=== PATIENT | male | born 1955 | race Caucasian/White ===

== ENCOUNTER → 2017-04-28 | Outpatient (CLI) | payer OTHER ==
[2017-04-28 17:47] LABS: BASO % 0.2 %; BASO ABS # 0.02 K/uL (0-0.2); EOS % 2.8 %; EOS ABS # 0.31 K/uL (0-0.5); HEMATOCRIT 37.2 % (42-52); HEMOGLOBIN 12.6 g/dL (14.0-18.0); IG# 0.04 K/uL (0.00-0.02); LYMPH % 23.8 %; LYMPH ABS # 2.61 K/uL (1.2-3.4); MEAN CELL VOLUME 93.2 fL (80-100); MEAN CORPUSCULAR HEMOGLOBIN 31.6 pg (25-34); MEAN CORPUSCULAR HGB CONC 33.9 g/dl (32-36); MEAN PLATELET VOLUME 8.8 fL (7.4-10.4); MONO % 6.8 %; MONO ABS # 0.74 K/uL (0.11-0.59); NEUT ABS # 7.23 K/uL (1.4-6.5); PLATELET COUNT 274 K/uL (130-400); RED CELL DISTRIBUTION WIDTH CV 13.8 % (11.5-14.5); WHITE BLOOD COUNT 10.95 K/uL (4.8-10.8)
[2017-04-28 18:28] LABS: ALBUMIN 3.9 gm/dl (3.4-5.0); ALT/SGPT 20 U/L (12-78); AST/SGOT 17 U/L (15-37); BLOOD UREA NITROGEN 17 mg/dl (7-18); CARBON DIOXIDE 27 mmol/L (21-32); GLUCOSE 72 mg/dl (70-99); POTASSIUM 5.3 mmol/L (3.5-5.1); SODIUM 135 mmol/L (136-145)
[2017-04-28 18:30] LABS: HEMOGLOBIN A1C 6.5 % (4.5-5.6); TRANSFERRIN 221 mg/dl (200-360)
[2017-04-28 18:35] LABS: ALKALINE PHOSPHATASE 81 U/L (45-117); CHOLESTEROL 141 mg/dl (0-200); LDL CHOLESTEROL CALCULATED 75 mg/dl; TOTAL PROTEIN 7.4 gm/dl (6.4-8.2)
== END | disposition home or self-care (01) ==
LOC: C.LABMFLN 15:40
PROVIDERS: ATTEND Family Medicine
DX: E78.5 Hyperlipidemia, unspecified (principal); D64.9 Anemia, unspecified; E11.9 Type 2 diabetes mellitus without complications

== ENCOUNTER → 2017-05-19 | Outpatient (CLI) | payer OTHER | END | disposition home or self-care (01) | LOC: C.LABMFLN 07:07 | PROVIDERS: ATTEND Family Medicine | DX: E87.5 Hyperkalemia (principal) ==

== ENCOUNTER → 2017-05-23 | Outpatient (CLI) | payer OTHER ==
[2017-05-23 13:08] LABS: BLOOD UREA NITROGEN 17 mg/dl (7-18); CARBON DIOXIDE 25 mmol/L (21-32); CREATININE 1.09 mg/dl (0.60-1.40); GLUCOSE 155 mg/dl (70-99); POTASSIUM 5.2 mmol/L (3.5-5.1); SODIUM 136 mmol/L (136-145)
== END | disposition home or self-care (01) ==
LOC: C.LABMFLN 07:02
PROVIDERS: ATTEND Family Medicine
DX: E87.5 Hyperkalemia (principal)

== ENCOUNTER → 2017-05-30 | Outpatient (CLI) | payer OTHER | END | disposition home or self-care (01) | LOC: C.LABMFLN 06:59 | PROVIDERS: ATTEND Family Medicine | DX: E87.5 Hyperkalemia (principal) ==

== ENCOUNTER → 2017-07-28 | Outpatient (CLI) | payer OTHER ==
[2017-07-28 12:26] LABS: BASO % 0.2 %; BASO ABS # 0.02 K/uL (0-0.2); EOS % 2.8 %; EOS ABS # 0.24 K/uL (0-0.5); HEMATOCRIT 37.2 % (42-52); HEMOGLOBIN 12.4 g/dL (14.0-18.0); IG# 0.02 K/uL (0.00-0.02); LYMPH % 30.7 %; LYMPH ABS # 2.64 K/uL (1.2-3.4); MEAN CELL VOLUME 94.4 fL (80-100); MEAN CORPUSCULAR HEMOGLOBIN 31.5 pg (25-34); MEAN CORPUSCULAR HGB CONC 33.3 g/dl (32-36); MEAN PLATELET VOLUME 9.2 fL (7.4-10.4); MONO % 7.2 %; MONO ABS # 0.62 K/uL (0.11-0.59); NEUT % 58.9 %; NEUT ABS # 5.07 K/uL (1.4-6.5); PLATELET COUNT 256 K/uL (130-400); RED CELL DISTRIBUTION WIDTH CV 13.9 % (11.5-14.5); RED CELL DISTRIBUTION WIDTH SD 47.9 fL (36.4-46.3); WHITE BLOOD COUNT 8.61 K/uL (4.8-10.8)
[2017-07-28 13:10] LABS: HEMOGLOBIN A1C 6.2 % (4.5-5.6)
[2017-07-28 13:23] LABS: AST/SGOT 18 U/L (15-37); BLOOD UREA NITROGEN 16 mg/dl (7-18); CARBON DIOXIDE 27 mmol/L (21-32); CHOLESTEROL 113 mg/dl (0-200); CREATININE 1.01 mg/dl (0.60-1.40); GLUCOSE 137 mg/dl (70-99); POTASSIUM 4.2 mmol/L (3.5-5.1); SODIUM 137 mmol/L (136-145)
[2017-07-28 13:29] LABS: ALKALINE PHOSPHATASE 75 U/L (45-117); ALT/SGPT 16 U/L (12-78); LDL CHOLESTEROL CALCULATED 58 mg/dl; TOTAL PROTEIN 7.6 gm/dl (6.4-8.2); TRANSFERRIN 230 mg/dl (200-360)
== END | disposition home or self-care (01) ==
LOC: C.LABMFLN 08:59
PROVIDERS: ATTEND Family Medicine
DX: D64.9 Anemia, unspecified (principal); E78.5 Hyperlipidemia, unspecified; E11.9 Type 2 diabetes mellitus without complications

== ENCOUNTER → 2017-11-09 | Outpatient (CLI) | payer OTHER ==
[~2017-11-09] MED LIST: ALFU10TA2 PO; AMB5 PO; ASPI81TA28 PO; CILO100T PO; FAMO40TA6 PO; FLUT0.15 NAE; GLC/500 PO; GLIM4TAB2 PO; HYDR-5806 PO; METO25TA56 PO; NTRGSL/4 UT; PRAV20TA PO; PRED50TA PO; VNTHFA/IN INH
[2017-11-09 12:52] LABS: BASO % 0.1 %; BASO ABS # 0.01 K/uL (0-0.2); EOS % 2.9 %; EOS ABS # 0.23 K/uL (0-0.5); HEMATOCRIT 38.2 % (42-52); HEMOGLOBIN 12.9 g/dL (14.0-18.0); IG# 0.04 K/uL (0.00-0.02); LYMPH % 25.3 %; LYMPH ABS # 1.98 K/uL (1.2-3.4); MEAN CELL VOLUME 94.8 fL (80-100); MEAN CORPUSCULAR HGB CONC 33.8 g/dl (32-36); MEAN PLATELET VOLUME 9.1 fL (7.4-10.4); MONO ABS # 0.55 K/uL (0.11-0.59); NEUT % 64.2 %; NEUT ABS # 5.03 K/uL (1.4-6.5); PLATELET COUNT 263 K/uL (130-400); RED CELL DISTRIBUTION WIDTH CV 14.4 % (11.5-14.5); RED CELL DISTRIBUTION WIDTH SD 49.7 fL (36.4-46.3); WHITE BLOOD COUNT 7.84 K/uL (4.8-10.8)
[2017-11-09 12:55] LABS: HEMOGLOBIN A1C 6.5 % (4.5-5.6)
[2017-11-09 13:33] LABS: ALBUMIN 3.8 gm/dl (3.4-5.0); ALKALINE PHOSPHATASE 80 U/L (45-117); ALT/SGPT 17 U/L (12-78); AST/SGOT 15 U/L (15-37); BLOOD UREA NITROGEN 14 mg/dl (7-18); CARBON DIOXIDE 24 mmol/L (21-32); CHOLESTEROL 122 mg/dl (0-200); CREATININE 0.96 mg/dl (0.60-1.40); GLUCOSE 117 mg/dl (70-99); LDL CHOLESTEROL CALCULATED 63 mg/dl; SODIUM 137 mmol/L (136-145); TOTAL PROTEIN 7.4 gm/dl (6.4-8.2); TRANSFERRIN 224 mg/dl (200-360)
== END | disposition home or self-care (01) ==
LOC: C.LABMFLN 08:36
PROVIDERS: ATTEND Family Medicine
DX: E11.9 Type 2 diabetes mellitus without complications (principal); E78.5 Hyperlipidemia, unspecified; D64.9 Anemia, unspecified

== ENCOUNTER 2020-04-29 08:05 | Inpatient (IN) ==
--- NOTE | 2020-04-21 15:01 | PAT Medication Instructions ---
Medication Instructions Date of Service April 21, 2020 Home Medications Medication Instructions Recorded nitroglycerin 0.4 mg sublingual 0.4 mg SL Q5M PRN #20 tab 10/05/18 tablet metoprolol tartrate 50 mg tablet 50 mg PO BID #180 tab 07/27/19 albuterol sulfate 90 mcg/actuation 2 puffs INHALATION Q4H PRN #18 gm 10/25/19 aerosol inhaler cilostazol 50 mg tablet 50 mg PO BID #180 tab 12/12/19 metformin 500 mg tablet 500 mg PO BID #180 tab 12/31/19 hydrocodone 10 mg-acetaminophen 1 tab PO Q6H PRN #120 tab 03/27/20 325 mg tablet ezetimibe 10 mg tablet 10 mg PO DAILY #30 tab 04/12/20 nitroglycerin 0.4 mg sublingual tablet 0.4 mg SL Q5M PRN metoprolol tartrate 50 mg tablet 50 mg PO BID albuterol sulfate 90 mcg/actuation aerosol inhaler 2 puffs INHALATION Q4H PRN cilostazol 50 mg tablet 50 mg PO BID metformin 500 mg tablet 500 mg PO BID ascorbic acid (vitamin C) 1,000 mg tablet 1 g PO QAM cholecalciferol (vitamin D3) 25 mcg (1,000 unit) capsule 25 mcg PO QAM glimepiride 2 mg tablet See Rx Instructions PO BID hydrocodone 10 mg-acetaminophen 325 mg tablet 1 tab PO Q6H PRN alfuzosin 10 mg PO QPM aspirin 81 mg PO QPM famotidine 40 mg PO QAM fluticasone propionate 2 sprays INTRANASAL DAILY PRN lisinopril 2.5 mg PO QAM pravastatin 80 mg PO QPM ezetimibe 10 mg tablet 10 mg PO DAILY Continue as directed nitroglycerin 0.4 mg sublingual tablet 0.4 mg SL Q5M PRN (if needed) ASK your surgeon for instructions cilostazol 50 mg tablet 50 mg PO BID aspirin 81 mg PO QPM DO NOT take the morning of surgery metformin 500 mg tablet 500 mg PO BID ascorbic acid (vitamin C) 1,000 mg tablet 1 g PO QAM cholecalciferol (vitamin D3) 25 mcg (1,000 unit) capsule 25 mcg PO QAM glimepiride 2 mg tablet See Rx Instructions PO BID lisinopril 2.5 mg PO QAM Take morning of surgery With a small sip of water, OTHERWISE NOTHING TO EAT OR DRINK AFTER MIDNIGHT: metoprolol tartrate 50 mg tablet 50 mg PO BID albuterol sulfate 90 mcg/actuation aerosol inhaler 2 puffs INHALATION Q4H PRN (use if needed; please bring rescue inhaler with you to hospital day of surgery if possible) hydrocodone 10 mg-acetaminophen 325 mg tablet 1 tab PO Q6H PRN (okay to take up to 4 hours prior to surgery if needed) famotidine 40 mg PO QAM fluticasone propionate 2 sprays INTRANASAL DAILY PRN (if needed) ezetimibe 10 mg tablet 10 mg PO DAILY Take evening before surgery metoprolol tartrate 50 mg tablet 50 mg PO BID albuterol sulfate 90 mcg/actuation aerosol inhaler 2 puffs INHALATION Q4H PRN (if needed) metformin 500 mg tablet 500 mg PO BID glimepiride 2 mg tablet See Rx Instructions PO BID hydrocodone 10 mg-acetaminophen 325 mg tablet 1 tab PO Q6H PRN (if needed) alfuzosin 10 mg PO QPM fluticasone propionate 2 sprays INTRANASAL DAILY PRN (if needed) pravastatin 80 mg PO QPM Other Notes If you have any questions please call us at [phone] or [phone] or [phone] or [phone]
--- NOTE | 2020-04-23 10:19 | Anesthesiology Consultation ---
Date of Service April 23, 2020 Assessment & Plan (1) Encounter for pre-operative examination: Chart Review Chart Review: Acceptable Risk for Surgery (pending preop Covid testing results ) and Patient seen in Pre Admission Testing - Check BSG AM DOS Pt states he had awareness with angioplasty and stenting of left iliac artery on 10/14/17- pt states it was painful and uncomfortable but he could not speak or move. (Procedure was done in Room 12 with RN sedation only per records) Per [facility] appt on 04/23/20, patient resides in [facility]. Wears mask, uses good hand hygiene and socially distances. No recent travel. No known Covid positive contacts or Covid related symptoms. Pt had preop Covid testing 04/22/20 at [place]= will await results. Educated on importance of self quarantining, social distancing and wearing mask in public both for the patient and household contacts. Seen by cardio 03/18/21= pt with hx of BMS in 1997. No angina but claudication has been limiting his exertion. Continue aspirin 81 mg daily indefinitely. Co ntinue beta-elizabeth. HTN- well controlled. Dyslipidemia- intolerant to other statins but tolerates Pravastatin. PAD s/p femoral-femoral bypass, since occluded. Worsening right LE claudication- has bypass scheduled Apr [address] Chan. Preoperative cardiac assessment: Difficult to know his functional status as claudication appears to be his most limiting factor. Dobutamine stress echo ordered as per patient request to be done in the office. He should remain on aspirin and beta-elizabeth throughout the perioperative period. This was discussed with him. (Pt had abnormal DSE on 04/02/20- subsequently had cardiac cath on 04/10/20- "Mild nonobstructive CAD. False positive stress echo.") Teaching & Discussion Pre-Anesthesia Teaching/Discussion Notes: Instructed NPO after midnight before s urgery,except medications with 15 cc of water. Medication instructions provided according to the PAT guidelines. History Surgery Operation Date: 04/29/20 07:30 Proposed Procedures p Right Ilio Femoral Bypass - Agapito Chan MD Height/Weight Height: 5 ft 7 in Weight: 75.6 kg Allergies Allergy/AdvReac Type Severity Reaction Status Date / Time gabapentin Allergy Unknown "throat Verified 04/02/20 13:31 swelled shhut" Iodinated Contrast Media Allergy Unknown hives Verified 04/02/20 13:31 Medications Home Medications Medication Instructions Recorded Confirmed Last Taken nitroglycerin 0.4 mg sublingual 0.4 mg SL Q5M PRN #20 tab 10/05/18 04/10/20 Unknown tablet metoprolol tartrate 50 mg tablet 50 mg PO BID #180 tab 07/27/19 04/10/20 Unknown albuterol sulfate 90 mcg/actuation 2 puffs INHALATION Q4H PRN #18 gm 10/25/19 04/10/20 Unknown aerosol inhaler cilostazol 50 mg tablet 50 mg PO BID #180 tab 12/12/19 04/10/20 Unknown metformin 500 mg tablet 500 mg PO BID #180 tab 12/31/19 04/10/20 Unknown ascorbic acid (vitamin C) 1,000 mg 1 g PO QAM tab 03/18/20 04/10/20 Unknown tablet cholecalciferol (vitamin D3) 25 25 mcg PO QAM 03/18/20 04/10/20 Unknown mcg (1,000 unit) capsule glimepiride 2 mg tablet See Rx Instructions PO BID tab 03/18/20 04/10/20 Unknown hydrocodone 10 mg-acetaminophen 1 tab PO Q6H PRN #120 tab 03/27/20 04/10/20 Unknown 325 mg tablet alfuzosin 10 mg PO QPM 04/02/20 04/10/20 Unknown aspirin 81 mg PO QPM 04/02/20 04/10/20 Unknown famotidine 40 mg PO QAM 04/02/20 04/10/20 Unknown fluticasone propionate 2 sprays INTRANASAL DAILY PRN 04/02/20 04/10/20 Unknown lisinopril 2.5 mg PO QAM 04/02/20 04/10/20 Unknown pravastatin 80 mg PO QPM 04/02/20 04/10/20 Unknown ezetimibe 10 mg tablet 10 mg PO DAILY #30 tab 04/12/20 Unknown Past Medical History Medical History (Updated 04/23/20 @ 14:43 by Mayra Duran PA-C) Acid reflux Well controlled and stable Anxiety Asthma Well controlled and stable- rare albuterol use Atherosclerosis of leg with intermittent claudication CAD (coronary artery disease) BMS x1 (1997), mild non-obstructive CAD per 04/10/20 cardiac cath Chronic lumbar pain Dyslipidemia Enlarged prostate Hearing difficulty No hearing aids needed History of blood clots Pt has no recollection of DVT/PEs or history of being on anticoagulation HTN (hypertension) Myocardial Infarction 1997 LEYDA on CPAP PAD (peripheral artery disease) s/p multiple vascular interventions- R/L common femoral endart (2012), left iliac artery stent + angioplasty (2012), fem-fem bypass (2012), Left iliac artery stent (2017), fem-bypass now occluded/worsening RLE claudication/reason for upcoming procedure per 03/18/20 cardiology office visit notes ([facility]) Pulmonary nodules under surveillance (Dr. Solano/[facility]) Type 2 diabetes mellitus NIDDM- well controlled and stable Vision problem Improved since cataracts removed Exercise / Class Metabolic Activity III < 4 Walking/Shop/Light housework (no chest pain or SOB with short distance, flat surface ambulation- uses wheeled walker when not at home ) Past Family History Family History Brother AA (alcohol abuse) Diabetes Drug abuse Mother Anxiety Hypertension Grandmother Bipolar disorder Cardiac disorder Diabetes Hypertension Father Lung disease Past Surgical History Surgical History (Updated 04/23/20 @ 14:43 by Mayra Duran PA-C) History of anesthesia reaction Awareness with 2018 vascular procedure History of cardiac cath 1997 > BMS x1, 04/10/20 ([facility]) > mild, non-obstructive CAD History of cataract surgery R/L History of colonoscopy History of esophagogastroduodenoscopy (EGD) History of vascular surgery s/p multiple vascular interventions- R/L common femoral endart (2012), left iliac artery stent + angioplasty (2012), fem-fem bypass (2012), Left iliac artery stent (2018) Past Anesthesia History No Hx of Anesthesia Complications (with exception to awareness in 2018; pt was slow to wake with previous bypass surgery - no hx of reintubation ) and No Family Hx of Anesthesia Complications History of PONV No Hx of PONV and No Hx of Motion Sickness Social History Smoking Status: Current every day smoker Do You Dip or Chew Tobacco: No Smoking End Date: 10 CIGS A DAY-SMOKED SINCE AGE 13 Hx Alcohol Use: No Hx Substance Use: No substance use type: does not use Review of Systems Hx of possible TIA at age 41 - pt did not "feel right" with numbness = was evaluated in hospital- no issues since that time Patient denies chest pain, shortness of breath, dyspnea on exertion, cough, wheezing, palpitations. No hx of seizures.. No hx if blood transfusions Physical Exam Vital Signs VITALS BP 164/73 P 62 TEMP 97.4 SP02 98% RESP 16 Constitutional no acute distress ENMT Mouth: no TMJ clicking Thyromental Distance: > or= 3.5 Finger Breadths (4.0) Mallampati Class: II Full dentures top and bottom Neck + limited neck extension (minimal ) Respiratory normal respiratory effort; no respiratory distress Auscultation: no wheezes mild course breath sounds throughout Cardiovascular Rate/Rhythm: regular rate and regular rhythm Heart Sounds: no murmur Vessels: no carotid bruit Musculoskeletal Spine: no pain with cervical ROM Extremities: extremities normal to inspection Psychiatric Orientation: alert Testing Laboratory Results 04/23/20 10:58 04/23/20 10:58 PT 10.8 Seconds (9.0-12.0) 04/23/20 10:58 INR 1.1 (0.9-1.1) 04/23/20 10:58 APTT 23.9 Seconds (21.0-31.0) 04/23/20 10:58 Blood Type AB Positive 04/23/20 10:58 Antibody Screen NEGATIVE 04/23/20 10:58 04/01/20= HGB A1C: 7.3 Electrocardiogram Date: 04/23/20 SR with PACs at 65 bpm. Otherwise normal EKG. Chest X-Ray Date: 04/23/20 Findings: + NAD Mild hyperinflation. Stress Test Date: 04/02/20 Type: DSE Resting EF: 50-60% Resting LV Function: normal Resting RWMA: + none Abnormal DSE at 74% MPHR. LV became dilated with reduced LV systolic function and globally hypokinetic- this suggests multivessel CAD. Abnormal dobutamine EKG at 74% MPHR. Nonsustained atrial tachycardia; frequent PVCs with occ ventricular couplets. Transient IVCB. No chest pain reported. Mild concentric LVH. No significant valvular abnormalities. Catheterization was recommended. (See below for cath report) Cardiac Catheterization Date: 04/10/20 LM= no significant CAD LAD= 10-20% Cx= 10-30% RCA= 30% in stent restenosis ; mid RCA 20% stenosis Impression: 1. Mild nonobstructive CAD. 2. Proximal RCA stent 30% in-stent restenosis. 3. Codominant system. 4. No aortic stenosis. 5. Normal left-sided filling pressure. 6. False positive stress echo. Continue risk factor modification/medical therapy
[2020-04-23 11:38] LABS: Basophils # (auto) 0.01 K/uL (0-0.2); Basophils % (auto) 0.1 %; Eosinophils # (auto) 0.22 K/uL (0-0.5); Eosinophils % (auto) 3.1 %; Hematocrit (blood only) 36.6 % (42-52); Hemoglobin 12.3 g/dL (14.0-18.0); Immature Granulocytes # (auto) 0.03 K/uL (0.00-0.02); Immature Granulocytes % (auto) 0.4 %; Lymphocytes # (auto) 1.63 K/uL (1.2-3.4); Lymphocytes % (auto) 23.3 %; Mean Corpuscular Hemoglobin 31.5 pg (25-34); Mean Corpuscular Hgb Conc 33.6 g/dL (32-36); Mean Corpuscular Volume 93.6 fL (80-100); Mean Platelet Volume 9.1 fL (7.4-10.4); Monocytes # (auto) 0.51 K/uL (0.11-0.59); Monocytes % (auto) 7.3 %; Neutrophils % (auto) 65.8 %; Platelet Count 230 K/uL (130-400); RDW Coefficient of Variation 13.5 % (11.5-14.5); RDW Standard Deviation 45.8 fL (36.4-46.3); Red Blood Count 3.91 M/uL (4.7-6.1)
--- NOTE | 2020-04-23 11:41 | XRay Report ---
XR chest Pre-admission PA/Lat HISTORY: 65 years-old Male pat preoperative exam. No acute chest complaints COMPARISON: CT head 01/15/2020 TECHNIQUE: PA and lateral views of the chest FINDINGS: Cardiomediastinal and hilar silhouettes are within normal limits. No pneumothorax, pleural effusion, airspace consolidation or overt pulmonary edema. Mild hyperinflation. Bones of the chest appear gross ly intact. IMPRESSION: No acute process. ACT 112: Negative or not required by law. The above report was generated using voice recognition software. It may contain grammatical, syntax o r spelling errors. Electronically signed by: Omkar Valdez M.D. 04/23/2020 11:40 AM
[2020-04-23 11:48] LABS: BUN Creatinine Ratio 11.4 (10-20); Calcium 9.9 mg/dl (8.5-10.1); Creatinine Clr Calc Pharmacy 82.1 ml/min; Est GFR (African American) 106.7; Est GFR (Non-African American) 92.1; Potassium 4.2 mmol/L (3.5-5.1)
[2020-04-23 11:52] LABS: INR 1.1 (0.9-1.1); Partial Thromboplastin Ratio 0.9; Partial Thromboplastin Time 23.9 Seconds (21.0-31.0); Prothrombin Time 10.8 Seconds (9.0-12.0)
--- NOTE | 2020-04-23 16:13 | Electrocardiogram Report ---
Test Reason : Blood Pressure : / mmHG Vent. Rate : 065 BPM Atrial Rate : 065 BPM P-R Int : 136 ms QRS Dur : 088 ms QT Int : 424 ms P-R-T Axes : 066 039 035 degrees QTc Int : 440 ms Sinus rhythm with Premature atrial complexes Otherwise normal ECG No previous ECGs available Confirmed by Cm Vitale ([id number]) on 04/23/2020 4:13:22 PM Referred By: Agapito Chan Confirmed By:Cm Vitale
--- NOTE | 2020-04-29 05:19 | History & Physical Report ---
Date of Service April 29, 2020 Assessment & Plan (1) Occlusion of arterial bypass graft: Patient admitted for a right ilio femoral bypass. I have discussed the risks options and benefits of the procedure with the patient. The patient understands the risks options and benefits and agrees to the procedure. History of Present Illness Chief Complaint: Occluded cross fem bypass with severe claudication Primary Care Provider: Serafin Lynn DO Mr Sahu is a 64-year-old gentleman who had a cross femoral bypass done in the past. He had insertion of an iliac stent in his left iliac system. This was done in 2018. Approximately in November of last year he ended up with severe acute onset pain in the right leg which felt like a large cramp. He claims a work-up done at that time showed no blockage in the right lower extremity arterial system and no change in the aortoiliac system. He still gets claudication of his lower extremities when walking 2 blocks. He claims that his neighbor had to pick him up because he cannot get back the other day. He denies any rest pain in the foot. Allergies Allergy/AdvReac Type Severity Reaction Status Date / Time gabapentin Allergy Unknown "throat Verified 04/02/20 13:31 swelled shhut" Iodinated Contrast Media Allergy Unknown hives Verified 04/02/20 13:31 Home Medications Medication Instructions Recorded Confirmed Type nitroglycerin 0.4 mg sublingual 0.4 mg SL Q5M PRN #20 tab 10/05/18 04/10/20 Rx tablet metoprolol tartrate 50 mg tablet 50 mg PO BID #180 tab 07/27/19 04/10/20 Rx albuterol sulfate 90 mcg/actuation 2 puffs INHALATION Q4H PRN #18 gm 10/25/19 04/10/20 Rx aerosol inhaler cilostazol 50 mg tablet 50 mg PO BID #180 tab 12/12/19 04/10/20 Rx metformin 500 mg tablet 500 mg PO BID #180 tab 12/31/19 04/10/20 Rx ascorbic acid (vitamin C) 1,000 mg 1 g PO QAM tab 03/18/20 04/10/20 History tablet cholecalciferol (vitamin D3) 25 25 mcg PO QAM 03/18/20 04/10/20 History mcg (1,000 unit) capsule glimepiride 2 mg tablet See Rx Instructions PO BID tab 03/18/20 04/10/20 History alfuzosin 10 mg PO QPM 04/02/20 04/10/20 History aspirin 81 mg PO QPM 04/02/20 04/10/20 History famotidine 40 mg PO QAM 04/02/20 04/10/20 History fluticasone propionate 2 sprays INTRANASAL DAILY PRN 04/02/20 04/10/20 History lisinopril 2.5 mg PO QAM 04/02/20 04/10/20 History pravastatin 80 mg PO QPM 04/02/20 04/10/20 History ezetimibe 10 mg tablet 10 mg PO DAILY #30 tab 04/12/20 Rx hydrocodone 10 mg-acetaminophen 1 tab PO Q6H PRN #120 tab 04/25/20 Rx 325 mg tablet Past Med/Surg History Medical History Acid reflux Well controlled and stable Anxiety Asthma Well controlled and stable- rare albuterol use Atherosclerosis of leg with intermittent claudication CAD (coronary artery disease) BMS x1 (1997), mild non-obstructive CAD per 04/10/20 cardiac cath Chronic lumbar pain Dyslipidemia Enlarged prostate Hearing difficulty No hearing aids needed History of blood clots Pt has no recollection of DVT/PEs or history of being on anticoagulation HTN (hypertension) Myocardial Infarction 1997 LEYDA on CPAP PAD (peripheral artery disease) s/p multiple vascular interventions- R/L common femoral endart (2012), left iliac artery stent + angioplasty (2012), fem-fem bypass (2012), Left iliac artery stent (2017), fem-bypass now occluded/worsening RLE claudication/reason for upcoming procedure per 03/18/20 cardiology office visit notes ([facility]) Pulmonary nodules under surveillance (Dr. Solano/[facility]) Type 2 diabetes mellitus NIDDM- well controlled and stable Vision problem Improved since cataracts removed Surgical History History of anesthesia reaction Awareness with 2018 vascular procedure History of cardiac cath 1997 > BMS x1, 04/10/20 ([facility]) > mild, non-obstructive CAD History of cataract surgery R/L History of colonoscopy History of esophagogastroduodenoscopy (EGD) History of vascular surgery s/p multiple vascular interventions- R/L common femoral endart (2012), left iliac artery stent + angioplasty (2013), fem-fem bypass (2013), Left iliac artery stent (2018) Family History Brother AA (alcohol abuse) Diabetes Drug abuse Mother Anxiety Hypertension Grandmother Bipolar disorder Cardiac disorder Diabetes Hypertension Father Lung disease Social History Smoking Status: Current every day smoker Second Hand Exposure: Yes (PARENTS SMOKED/2 SONS SMOKE); Hx Alcohol Use: No Hx Substance Use: No Preferred Language: [place] Communication Ability: Effective Network Liaison Required: No Beliefs That Will Affect Care: None Current Living Situation: Other Current Living Situation Comment: roommate Feels Safe at Home: Yes Assistive Devices: CPAP, Denture - Upper, Denture - Lower, Glasses and Walker Review of Systems All systems reviewed & are unremarkable except as noted in HPI & below Physical Exam Constitutional: well developed and well nourished Respiratory: normal respiratory effort, lungs clear to auscultation Cardiovascular: Rate/Rhythm: regular rate and regular rhythm Radials carotids and superficial temporal's are +2 bilaterally. Abdominal exam shows no abnormal dilatation of the aorta. His femorals are +2 on the left +1 on the right. His dorsalis pedis and posterior tib are +2 on the left. Posterior tibials +1 on the right I cannot feel dorsalis pedis. Neurologic exam is intact. Capillary refill may be slightly decreased on the left leg compared to the right. Assessment/Plan Gastrointestinal (Abdomen): normal bowel sounds, soft, nontender, no hepatosplenomegaly Neurologic: normal touch/pain/proprioception, CN's II-XI intact bilaterally and moves all extremities Psychiatric: Orientation: alert and oriented x 3
[~2020-04-29 08:05] MED LIST changes: -ALFU10TA2 PO; -AMB5 PO; -ASPI81TA28 PO; -CILO100T PO; -FAMO40TA6 PO; -FLUT0.15 NAE; -GLC/500 PO; -GLIM4TAB2 PO; -HYDR-5806 PO; +LR 15ML/HR IV SCH; -METO25TA56 PO; -NTRGSL/4 UT; -PRAV20TA PO; -PRED50TA PO; -VNTHFA/IN INH
[2020-04-29] MEDS ORDERED: NovoLIN-R INSULIN PER UNIT CHARGE SC STA ×2 (08:31→09:55)
[2020-04-29] MEDS ORDERED: NovoLIN-R INSULIN PER UNIT CHARGE ONE (08:34)
--- NOTE | 2020-04-29 10:54 | History & Physical Bridge Note ---
Date of Service April 29, 2020 History & Physical Bridge Note I have examined the patient, reviewed the History & Physical and in the interval since the performance of the History & Physical I have noted the following changes of clinical significance: no changes noted
[2020-04-29] MEDS ORDERED: MIDAZOLAM HCL 1 MG/ML 2ML VIAL ONE (11:19)
[2020-04-29] MEDS ORDERED: NEOSTIGMINE METHYLSULFATE 5 MG/5 ML SYR ONE (11:23)
[2020-04-29] MEDS ORDERED: HEPARIN SOD (PORCINE) 1000 UNIT/ML 10 ML VIAL ONE ×2 (11:23→11:28)
[2020-04-29] MEDS ORDERED: ROCURONIUM BROMIDE 10 MG/ML 5 ML VIAL IV ONE ×6 (11:23→15:15)
[2020-04-29] MEDS ORDERED: GLYCOPYRROLATE 0.2 MG/ML VIAL ONE (11:23)
[2020-04-29] MEDS ORDERED: LIDOCAINE HCL 2% 2 ML VIAL/AMP(20MG/ML) INFIL ONE (11:23)
[2020-04-29] MEDS ORDERED: ONDANSETRON INJ 2 MG/ML 2 ML VIAL ONE (11:23)
[2020-04-29] MEDS ORDERED: PROPOFOL IV EMULSION 10 MG/ML 20 ML VIAL IV ONE (11:23)
[2020-04-29] MEDS ORDERED: fentaNYL citrate 100 MCG/2 ML VIAL ONE ×2 (11:23→13:06)
[2020-04-29] MEDS ORDERED: ALBUMIN HUMAN 5% 12.5 GM/250 ML VIAL IV ONE (11:29)
[2020-04-29] MEDS ORDERED: THROMBIN FOR SOLN 20000 UNIT KIT ONE (11:40)
[2020-04-29] MEDS ORDERED: GELATIN SPONGE SZ 100 ONE ×2 (11:40→15:50)
[2020-04-29] MEDS: ceFAZolin 1000MG 1,000 MG/7.5 ML SYR IV SCH ×2 (12:09→12:40)
[2020-04-29] MEDS ORDERED: HYDROmorphone INJ 2 MG/ML SYR/VIAL ONE (15:11)
[2020-04-29] MEDS ORDERED: ONDANSETRON INJ 2 MG/ML 2 ML VIAL IV PRN ×2 (16:05→17:39)
--- NOTE | 2020-04-29 16:11 | Post Operative Brief Note ---
Immediate Post Op Note v1 Date of Surgery April 29, 2020 Pre & Post Diagnosis Operation Date: 04/29/20 09:50 Pre-Op Diagnosis: Right Iliac Occlusion Post-Op Diagnosis: Right Iliac Occlusion I identified the patient and participated in the time-out.: Yes Procedure Operation Date: 04/29/20 09:50 Actual Procedures p Right Ilio Femoral Bypass with (Right) - Agapito Chan MD Surgeon Agapito Chan MD Ornamental Metal Worker MD [place],PAC Estimated Blood Loss 300 Findings Consistent with Post-Op Diagnosis Drains Davalos Catheter (16 fr davalos inserted without difficulty. draining clear yellow urine, anesthesia monitoring output) Anesthesia Type General Complications none Disposition Accompanied Patient To Recovery: No Disposition: Recovery Room
[2020-04-29] MEDS ORDERED: D5W AND 1/2NSS 1,000 ML IV SCH (16:15)
[2020-04-29] MEDS ORDERED: ESMOLOL HCL INJ 10 MG/ML 10ML VIAL IV ONE (16:52)
[2020-04-29] MEDS ORDERED: PROTAMINE SULFATE 10 MG/ML 5 ML VIAL ONE (16:52)
--- NOTE | 2020-04-29 17:04 | Operative Report ---
Post Operative Report Pre & Post Diagnosis Operation Date: 04/29/20 09:50 Pre-Op Diagnosis: Right Iliac Occlusion Post-Op Diagnosis: Right Iliac Occlusion I identified the patient and participated in the time-out.: Yes Procedure Operation Date: 04/29/20 09:50 Actual Procedures p Right Ilio Femoral Bypass(Right) - Agapito Chan MD Surgeon Dr. Chan Geomatics Professor MD [place] LMohanMinarchick,PAC Estimated Blood Loss 300 Findings Consistent with Post-Op Diagnosis Specimens none Anesthesia Type General Complications none Disposition Disposition: Surgical ICU Indications Life limiting claudication Description of Procedure After the patient and site were correctly identified, anesthesia was induced. The patient was prepped and draped in a sterile fashion. Attention was turned first to the right retroperitoneal transplant incision. The anterior superior iliac spine and pubic tubercle were landmarks. The incision was made 3cm superior to the inguinal ligament and was carried down through the muscle layers and fascia. The retroperitoneum was reflected superiorly to reveal the iliac arteries below with the help of a Bookwalter retractor. The common iliac artery was dissected circumferentially and a vessel loop placed around it as a marker. Attention was then turned to the right groin incision. A cutdown was made over the previous groin incision and extended distally. The distal SFA was freed circumferentially. A tunnel was made using an aortic clamp between the two incisions and an 8mm ringed PTFE graft was positioned appropriately in the tunnel. The patient was then therapeutically heparinized. The common and external iliac arteries were clamped and a focal endarterectomy performed. An 8mm ringed PTFE graft was sewn end to side to the common iliac artery using 4-0 Prolene. The distal anastomosis was sewn to the SFA in an end to side fashion using 5-0 Prolene. Upon completion of the anastomoses, there was significant needle hole bleeding an the patient was administered systemic Protamine. Hemostatic agents were applied to the suture line with good effect. The groin was closed in layers and skin closed with mary jane. The fascia was then closed at the site of the retroperitoneal incision with 2-0 Prolene and the subcutaneous tissue closed in layers. The skin was closed with mary jane. The patient tolerated the procedure well and had improvement of pedal signals at the conclusion of the case. Dr. Chan was present and scrubbed for the entire procedure. I attest to the content of the Intraoperative Record and any orders documented therein. Any exceptions are noted below.
[2020-04-29] MEDS ORDERED: fentaNYL citrate 100 MCG/2 ML VIAL IV PRN (17:39)
[2020-04-29] MEDS ORDERED: ATROPINE SULFATE 0.1 MG/ML 10ML SYR IV PRN (17:39)
[2020-04-29] MEDS ORDERED: ePHEDrine sulfate 50 MG/ML AMP IV PRN (17:39)
[2020-04-29] MEDS ORDERED: HYDROmorphone INJ 2 MG/ML SYR/VIAL IV PRN (17:39)
[2020-04-29 18:00] LABS: Hematocrit (blood only) 29.6 % (42-52); Hemoglobin 10.1 g/dL (14.0-18.0); Immature Granulocytes # (auto) 0.04 K/uL (0.00-0.02); Immature Granulocytes % (auto) 0.3 %; Lymphocytes # (auto) 1.15 K/uL (1.2-3.4); Lymphocytes % (auto) 7.8 %; Mean Corpuscular Hemoglobin 31.5 pg (25-34); Mean Corpuscular Volume 92.2 fL (80-100); Mean Platelet Volume 8.7 fL (7.4-10.4); Monocytes # (auto) 0.97 K/uL (0.11-0.59); Monocytes % (auto) 6.6 %; Neutrophils # (auto) 12.63 K/uL (1.4-6.5); Neutrophils % (auto) 85.3 %; Platelet Count 195 K/uL (130-400); RDW Coefficient of Variation 13.2 % (11.5-14.5); RDW Standard Deviation 44.8 fL (36.4-46.3); Red Blood Count 3.21 M/uL (4.7-6.1); White Blood Count 14.79 K/uL (4.8-10.8)
--- NOTE | 2020-04-29 18:00 | Anesthesiology Progress Note ---
Date of Service April 29, 2020 Anesthesia Post Procedure Vital Signs Vital Signs: Temp Pulse Pulse Resp BP BP Pulse Ox 04/29/20 17:50 93 H 20 130/73 95 04/29/20 17:40 97 H 13 135/76 96 04/29/20 17:30 102 H 16 140/76 98 04/29/20 17:21 36.2 C L 104 H 17 142/79 H 99 04/29/20 09:06 36.4 C L 77 18 171/82 H 97 Transfer of Care Handoff Completed per policy Notes Mental Status: alert / awake / arousable and participated in evaluation Patient Amnestic to Procedure: Yes Nausea / Vomiting: adequately controlled Pain: adequately controlled Airway Patency, RR, SpO2: stable & adequate BP & HR: stable & adequate Hydration State: stable & adequate Anesthetic Complications: no major complications apparent and Pt Satisfied with anesthetic care
[2020-04-29 18:18] LABS: BUN Creatinine Ratio 20.6 (10-20); Calcium 8.2 mg/dl (8.5-10.1); Creatinine Clr Calc Pharmacy 83.1 ml/min; Est GFR (African American) 107.2; Est GFR (Non-African American) 92.5; Potassium 4.1 mmol/L (3.5-5.1)
[2020-04-29 18:20] LABS: Mean Corpuscular Hgb Conc 34.1 g/dL (32-36)
--- NOTE | 2020-04-29 20:40 | Critical Care Consultation ---
Date of Consultation April 29, 2020 Assessment & Plan (1) Admitted to intensive care unit: Reason Critically Ill: 65-year-old male who is status post RIGHT iliofemoral bypass performed earlier today. Requiring close hemodynamic monitoring status post vascular surgery intervention. NEURO - * CAM ICU: NEGATIVE * Pain: Morphine and Percocet as needed. CARDIAC/VASCULAR - * Status post RIGHT iliofemoral bypass: * Per vascular surgery recommendations. * Monitoring for any signs/symptoms of bleeding status post vascular intervention. * Coronary artery disease, hypertension, hyperlipidemia: * Continue home vacations as tolerated. * Monitor on telemetry. RESPIRATORY - * Smoking history. * Requiring 2 L nasal cannula at this point. * Titrate down as tolerated. GI/NUTRITION - * Progress diet as tolerated. RENAL/LYTES - * No significant electrolyte derangements. * Will change IV fluids to normal saline at 125/h secondary to hyperglycemia. - * No concerns at this time. * Turk in place - Strict I&Os. ENDO - * DMII * BSGs per unit protocol. ISS --> gtt per unit policy. HEME - * Stable H&H * Will monitor closely s/p vascular intervention. ID - * No concerns for infectious contribution at this time. LINES/IV ACCESS - * PIVs x2 * Turk DVT PROPHYLAXIS - * Per vascular surgery. * SCDs I have personally spent 32 minutes of critical care time in the direct management of this patient. This is a life/limb threatening event. This includes time spent evaluating patient, direct bedside care, chart review, placing orders, interpretation of diagnostic studies, discussion with consultants, patient, and family members, as well as other required patient management activities. This time is exclusive of all separately billable procedures, and teaching time and separate from and in addition to any other critical care service time. Thank you for allowing us to participate in the care of this patient. Please refer to my attending physician's documentation for any further recommendations. (2) Occlusion of arterial bypass graft: (3) S/P vascular surgery: (4) S/P coronary artery stent placement: (5) Type 2 diabetes mellitus: (6) Tobacco use disorder: (7) HTN (hypertension): (8) Dyslipidemia: (9) CAD (coronary artery disease): (10) Asthma: History of Present Illness Attending Physician: Agapito Chan MD History of Present Illness Patient is a 65-year-old male with a significant past medical history of atherosclerosis of the leg, coronary artery disease, dyslipidemia, hypertension, type 2 diabetes, and status post coronary artery stent placement. Patient admitted to the ICU status post RIGHT iliofemoral bypass. Patient had a history of cross femoral bypass done in the past. He also had insertion of iliac stent. Patient with increasing leg claudication since November of this past year. Patient admitted today to undergo RIGHT iliofemoral bypass by Dr. Chan. Patient had an EBL of 300 intraprocedurally. Otherwise, the patient's procedure was without noted complication. Allergies Allergy/AdvReac Type Severity Reaction Status Date / Time gabapentin Allergy Unknown "throat Verified 04/29/20 08:45 swelled shhut" Iodinated Contrast Media Allergy Unknown hives Verified 04/29/20 08:45 Home Medications Medication Instructions Recorded Confirmed Type nitroglycerin 0.4 mg sublingual 0.4 mg SL Q5M PRN #20 tab 10/05/18 04/10/20 Rx tablet metoprolol tartrate 50 mg tablet 50 mg PO BID #180 tab 07/27/19 04/29/20 Rx albuterol sulfate 90 mcg/actuation 2 puffs INHALATION Q4H PRN #18 gm 10/25/19 04/29/20 Rx aerosol inhaler cilostazol 50 mg tablet 50 mg PO BID #180 tab 12/12/19 04/29/20 Rx metformin 500 mg tablet 500 mg PO BID #180 tab 12/31/19 04/29/20 Rx ascorbic acid (vitamin C) 1,000 mg 1 g PO QAM tab 03/18/20 04/29/20 History tablet cholecalciferol (vitamin D3) 25 25 mcg PO QAM 03/18/20 04/29/20 History mcg (1,000 unit) capsule glimepiride 2 mg tablet See Rx Instructions PO BID tab 03/18/20 04/29/20 History alfuzosin 10 mg PO QPM 04/02/20 04/29/20 History aspirin 81 mg PO QPM 04/02/20 04/29/20 History famotidine 40 mg PO QAM 04/02/20 04/29/20 History fluticasone propionate 2 sprays INTRANASAL DAILY PRN 04/02/20 04/10/20 History lisinopril 2.5 mg PO QAM 04/02/20 04/29/20 History pravastatin 80 mg PO QPM 04/02/20 04/29/20 History ezetimibe 10 mg tablet 10 mg PO DAILY #30 tab 04/12/20 04/29/20 Rx hydrocodone 10 mg-acetaminophen 1 tab PO Q6H PRN #120 tab 04/25/20 04/29/20 Rx 325 mg tablet Patient History Medical History Acid reflux Well controlled and stable Anxiety Asthma Well controlled and stable- rare albuterol use Atherosclerosis of leg with intermittent claudication CAD (coronary artery disease) BMS x1 (1997), mild non-obstructive CAD per 04/10/20 cardiac cath Chronic lumbar pain Dyslipidemia Enlarged prostate Hearing difficulty No hearing aids needed History of blood clots Pt has no recollection of DVT/PEs or history of being on anticoagulation HTN (hypertension) Myocardial Infarction 1997 LEYDA on CPAP PAD (peripheral artery disease) s/p multiple vascular interventions- R/L common femoral endart (2012), left iliac artery stent + angioplasty (2012), fem-fem bypass (2012), Left iliac artery stent (2017), fem-bypass now occluded/worsening RLE claudication/reason for upcoming procedure per 03/18/20 cardiology office visit notes ([facility]) Pulmonary nodules under surveillance (Dr. Solano/[facility]) Type 2 diabetes mellitus NIDDM- well controlled and stable Vision problem Improved since cataracts removed Surgical History History of anesthesia reaction Awareness with 2018 vascular procedure History of cardiac cath 1997 > BMS x1, 04/10/20 ([facility]) > mild, non-obstructive CAD History of cataract surgery R/L History of colonoscopy History of esophagogastroduodenoscopy (EGD) History of vascular surgery s/p multiple vascular interventions- R/L common femoral endart (2012), left iliac artery stent + angioplasty (2012), fem-fem bypass (2012), Left iliac artery stent (2017) Family History Brother AA (alcohol abuse) Diabetes Drug abuse Mother Anxiety Hypertension Grandmother Bipolar disorder Cardiac disorder Diabetes Hypertension Father Lung disease Social History Smoking Status: Current every day smoker Smoking End Date: 10 CIGS A DAY-SMOKED SINCE AGE 13; Second Hand Exposure: Yes (PARENTS SMOKED/2 SONS SMOKE); Do You Dip or Chew Tobacco: No; Hx Alcohol Use: No Hx Substance Use: No Preferred Language: Kazakh Communication Ability: Effective Bods Developer Required: No Beliefs That Will Affect Care: None Current Living Situation: Other Current Living Situation Comment: roommate Other Information That Helps Us Care for You: No Feels Safe at Home: Yes Safety Concerns: Feels Safe At This Time Assistive Devices: Oxygen - Continuous Review of Systems Review of Systems: All systems reviewed & are unremarkable except as noted in HPI & below Physical Exam Physical Exam: VITAL SIGNS - Vital signs and nursing notes were reviewed. GENERAL - 65-year-old male appearing his stated age who is in no acute distress. Communicates well with provider and answers questions appropriately. HEAD - NC/AT. EYES - PERRL with EOMI bilaterally. EARS - No deformities of external structures noted on gross examination bilaterally. NOSE - Midline and without cyanosis. MOUTH/OROPHARYNX - Without perioral cyanosis. Buccal mucosa pink and moist and without leukoplakia. NECK - Neck with FROM. LUNGS - Chest wall symmetric without accessory muscle use, intercostals retractions, or central cyanosis. Normal vesicular breath sounds CTA B/L. No wheezes, rales, or rhonchi appreciated. CARDIAC - RRR with S1/S2. No murmur, rubs, or gallops appreciated. No reproducible tenderness to palpation appreciated over the anterior chest wall. ABDOMEN - Abdominal contour flat without pulsations or visible masses. BS normoactive all four quadrants. No tenderness, palpable masses, hepatosplenomegaly, or ascites noted. EXTREMITIES - No clubbing or peripheral cyanosis. Dopplerable pedal pulses. Post-surgical dressing to the RIGHT groin clean, dry, and intact. NEUROLOGIC - Cranial nerves II through XII grossly intact. Sensory intact to light touch throughout. PSYCH - A&Ox3 and cooperates fully with examiner. Pt is very pleasant and interacts well with examiner. Results & Data Results & Data ([facility]) Vital Signs (Past 12 Hours) Vital Signs Temp Pulse Pulse Pulse Resp BP BP 04/29/20 19:20 97 H 15 04/29/20 19:10 103 H 27 H 04/29/20 19:00 92 H 15 04/29/20 18:50 79 13 04/29/20 18:45 82 15 04/29/20 18:10 89 14 114/64 04/29/20 18:00 36.5 C 86 13 133/69 04/29/20 17:50 93 H 20 130/73 04/29/20 17:40 97 H 13 135/76 04/29/20 17:30 102 H 16 140/76 04/29/20 17:21 36.2 C L 104 H 17 142/79 H 04/29/20 09:06 36.4 C L 77 18 171/82 H Pulse Ox 04/29/20 19:20 96 04/29/20 19:10 95 04/29/20 19:00 95 04/29/20 18:50 94 04/29/20 18:45 94 04/29/20 18:10 95 04/29/20 18:00 94 04/29/20 17:50 95 04/29/20 17:40 96 04/29/20 17:30 98 04/29/20 17:21 99 04/29/20 09:06 97 Coding Level of Care Code Critical Care 1st 30-74 mins Diagnoses Admitted to intensive care unit Z78.9 Occlusion of arterial bypass graft T82.898A S/P vascular surgery Z98.890 S/P coronary artery stent placement Z95.5 Type 2 diabetes mellitus E11.9 Tobacco use disorder F17.200 HTN (hypertension) I10 Dyslipidemia E78.5 CAD (coronary artery disease) I25.10 Asthma J45.909 Time Spent (min) 32
[2020-04-29] MEDS: ceFAZolin 2000MG 2,000 MG/15 ML SYR IV SCH (20:58)
[2020-04-29] MEDS: SODIUM CHLORIDE 0.9% 1000ML 1,000 ML IV SCH (21:00)
[2020-04-29] MEDS: MoRPHine SULFATE 4 MG/ML 1 ML CARP\\VIAL IV PRN ×2 (21:04→23:38)
[2020-04-29] MEDS ORDERED: GLUCAGON FOR INJ 1 MG VIAL SQ PRN (22:14)
[2020-04-29] MEDS ORDERED: DEXTROSE 50% 50 ML SYRINGE IV PRN (22:14)
[2020-04-29] MEDS ORDERED: CARBOHYDRATES FOR HYPOGLYCEMIA PO PRN (22:14)
[2020-04-29] MEDS ORDERED: GLUCOSE 10 TABS/TUBE PO PRN (22:14)
[2020-04-29] MEDS ORDERED: GLUCOSE 40% GEL 15 GM TUBE PO PRN (22:14)
[2020-04-30] MEDS ORDERED: PHARMACY GLYCEMIC MGMT CONSULT PRN (00:06)
[2020-04-30] MEDS ORDERED: INSULIN GLARGINE SOLOSTAR 100 UNITS/ML 3 ML PEN SC ONE (00:15)
[2020-04-30] MEDS: INSULIN ASPART 100 UNITS/ML 3 ML PEN SC SCH ×6 (00:45→21:10)
[2020-04-30] MEDS: ceFAZolin 2000MG 2,000 MG/15 ML SYR IV SCH (03:52)
[2020-04-30] MEDS: SODIUM CHLORIDE 0.9% 1000ML 1,000 ML IV SCH ×2 (04:42→13:28)
[2020-04-30] MEDS: MoRPHine SULFATE 4 MG/ML 1 ML CARP\\VIAL IV PRN ×5 (04:42→15:34)
[2020-04-30 04:50] LABS: Hematocrit (blood only) 27.3 % (42-52); Hemoglobin 9.1 g/dL (14.0-18.0); Immature Granulocytes # (auto) 0.02 K/uL (0.00-0.02); Immature Granulocytes % (auto) 0.2 %; Lymphocytes # (auto) 1.18 K/uL (1.2-3.4); Lymphocytes % (auto) 14.5 %; Mean Corpuscular Hgb Conc 33.3 g/dL (32-36); Mean Corpuscular Volume 92.9 fL (80-100); Mean Platelet Volume 8.9 fL (7.4-10.4); Monocytes # (auto) 0.82 K/uL (0.11-0.59); Monocytes % (auto) 10.1 %; Neutrophils # (auto) 6.13 K/uL (1.4-6.5); Neutrophils % (auto) 75.2 %; Platelet Count 212 K/uL (130-400); RDW Coefficient of Variation 13.5 % (11.5-14.5); RDW Standard Deviation 45.7 fL (36.4-46.3); Red Blood Count 2.94 M/uL (4.7-6.1); White Blood Count 8.15 K/uL (4.8-10.8)
[2020-04-30 05:19] LABS: BUN Creatinine Ratio 19.3 (10-20); Calcium 7.7 mg/dl (8.5-10.1); Creatinine Clr Calc Pharmacy 84.1 ml/min; Est GFR (African American) 107.8; Magnesium 1.9 mg/dl (1.8-2.4); Phosphorus 2.5 mg/dl (2.5-4.9); Potassium 3.8 mmol/L (3.5-5.1)
--- NOTE | 2020-04-30 08:42 | Critical Care Progress Note ---
Date of Service April 30, 2020 Assessment & Plan (1) Admitted to intensive care unit: Impression: 65-year-old male with a history of peripheral vascular disease. He had a cross femoral bypass performed previously and left iliac stent performed in 2018. He said claudication but no rest pain. He was found to have an occluded graft and was taken to the OR yesterday for right iliofemoral bypass. He has been monitored in the ICU postsurgically and has done well. Recommendations: 1. Status post right iliofemoral bypass: Continue management per vascular surgery. 2. Postoperative anemia: Hemodynamically stable. No indication for transfusion currently. Continue to follow. 3. Sleep disordered breathing: Continue home CPAP. 4. Hyperglycemia: Continue glycemic protocol. Ultimate disposition per vascular surgery. Will sign off from a critical care standpoint at this point time. Feel free to contact us if we can be of additional assistance. (2) S/P vascular surgery: Admission and Anticipated Discharge Date Admission Date: April 29, 2020 Subjective Patient seen and examined. EMR reviewed. Imaging reviewed. Patient complains of some pain at his surgical site. His pain meds overnight worked well. He denies chest pain palpitations or shortness of breath. No nausea or vomiting. No numbness tingling or paresthesias of the leg. Review of Systems Review of Systems: All systems reviewed & are unremarkable except as noted in HPI & below Physical Exam Constitutional: WD/WN, vitals as above Neck: trachea midline, no thyromegaly Respiratory: normal respiratory effort, lungs clear to auscultation Cardiovascular: RRR, no murmur, no edema Gastrointestinal (Abdomen): normal bowel sounds, soft, nontender, no hepatosplenomegaly Musculoskeletal: Extremities: extremities normal to inspection Pulses are intact. Legs are warm to touch bilaterally. Surgical incisions are dressed Skin: no rashes, warm and dry Neurologic: Nonfocal exam Lymphatic: no cervical lymphadenopathy Results & Data Results & Data ([facility]) Vital Signs (Past 12 Hours) Vital Signs Temp Pulse Resp BP Pulse Ox 04/30/20 06:20 80 15 96 04/30/20 06:10 80 15 96 04/30/20 06:00 79 15 95 04/30/20 05:50 82 16 95 04/30/20 05:40 78 16 96 04/30/20 05:30 83 16 130/63 96 04/30/20 05:00 84 15 95 02/10/21 04:30 93 H 23 125/66 96 04/30/20 04:00 37.5 C 98 H 19 96 04/30/20 03:00 75 15 97 04/30/20 02:30 94 H 19 117/67 97 04/30/20 02:00 74 18 98 04/30/20 01:30 77 15 129/66 98 04/30/20 01:20 76 15 98 04/30/20 01:10 75 15 98 04/30/20 00:30 82 17 103/62 96 04/30/20 00:00 82 15 97 04/29/20 23:30 37.4 C 91 H 15 126/74 97 04/29/20 23:00 79 15 98 04/29/20 22:30 79 16 112/63 97 04/29/20 22:00 76 14 96 04/29/20 21:30 82 14 106/62 97 04/29/20 21:00 36.9 C 97 H 17 97 Laboratory Results 04/30/20 04:37 04/30/20 04:37 Diagnostic Findings No new imaging Coding Level of Care Code 77071 Subseq Hosp Care Lvl 2 Diagnoses Admitted to intensive care unit Z78.9 S/P vascular surgery Z98.890
[2020-04-30] MEDS ORDERED: ICU PROTOCOL FOR HYPERGLYCEMIA SCH (09:00)
[2020-04-30] MEDS ORDERED: INSULIN GLARGINE SOLOSTAR 100 UNITS/ML 3 ML PEN SC SCH (09:00)
--- NOTE | 2020-04-30 11:57 | Surgery Progress Note ---
Date of Service April 30, 2020 Assessment & Plan (1) Occlusion of arterial bypass graft: Patient is POD#1 from a right iliofemoral bypass. He is doing well with palpable pulses in the right foot. Will increase activity. Transfer to floor Admission and Anticipated Discharge Date Admission Date: April 29, 2020 Subjective Patient is awake. Complaining of lower abd and groin incisional pain. No foot pain. Says right foot feels warm Physical Exam Constitutional: well developed and well nourished Respiratory: normal respiratory effort, lungs clear to auscultation Cardiovascular: Rate/Rhythm: regular rate and regular rhythm Palpable pedal pulse on rigth foot Gastrointestinal (Abdomen): Percussion/Palpation: abdomen soft; abdomen nontender Skin: + incision (Dressings dry and intact) Neurologic: normal touch/pain/proprioception and moves all extremities Psychiatric: Orientation: alert and oriented x 3 Results & Data ([facility]) Vital Signs (Past 12 Hours) Vital Signs Temp Pulse Resp BP Pulse Ox 04/30/20 09:10 89 25 H 97 04/30/20 09:00 84 6 L 97 04/30/20 08:50 85 16 97 04/30/20 08:40 82 0 L 97 04/30/20 08:30 85 10 L 139/72 97 04/30/20 08:20 86 1 L 97 04/30/20 08:10 84 1 L 96 04/30/20 08:00 37.2 C 94 H 12 96 04/30/20 07:50 90 18 97 04/30/20 07:40 90 15 93 04/30/20 07:30 96 H 17 143/71 H 94 04/30/20 07:20 92 H 16 96 04/30/20 07:10 91 H 15 96 04/30/20 07:00 89 17 95 04/30/20 06:50 80 16 96 04/30/20 06:40 85 15 96 04/30/20 06:30 82 15 138/69 96 04/30/20 06:20 80 15 96 04/30/20 06:10 80 15 96 04/30/20 06:00 79 15 95 04/30/20 05:50 82 16 95 04/30/20 05:40 78 16 96 04/30/20 05:30 83 16 130/63 96 04/30/20 05:00 84 15 95 04/30/20 04:30 93 H 23 125/66 96 04/30/20 04:00 37.5 C 98 H 19 96 04/30/20 03:00 75 15 97 04/30/20 02:30 94 H 19 117/67 97 04/30/20 02:00 74 18 98 04/30/20 01:30 77 15 129/66 98 04/30/20 01:20 76 15 98 04/30/20 01:10 75 15 98 04/30/20 00:30 82 17 103/62 96 04/30/20 00:00 82 15 97
--- NOTE | 2020-04-30 15:11 | Pharmacy Report ---
Pharmacy Glycemic Short Note 2 - Date of Service April 30, 2020 - Glycemic Short BSG Results (Last 24 hours): 04/29/20 04/29/20 04/29/20 16:09 17:40 17:52 Glucose 223 H POC Glucose 216 H 231 H 04/29/20 04/29/20 04/30/20 21:09 23:30 03:51 Glucose POC Glucose 285 H 248 H 195 H 04/30/20 04/30/20 04/30/20 04:37 07:29 11:42 Glucose 174 H POC Glucose 162 H 127 H OUTPATIENT ANTIDIABETIC REGIMEN: * Metformin 500mg BID * Glimepiride 4mg qam, 2mg qpm * A1c: 7.3% 04-01-20 ASSESSMENT: * Patient presenting with moderate hyperglycemia which downtrended nicely today after 23 total units of insulin last evening * the patient was started on a moderate stress weight based basal/bolus regimen this morning. * The patient is ordered a diet, however per RN is not feeling up to eating and as such has not required any carb coverage with novolog. I will adjust evening lantus dose to a conservative scale given patient's poor appetite. PLAN FOR INPATIENT GLYCEMIC CONTROL: * Hold outpatient oral diabetes medications * Basal insulin * Lantus 20 units SQ X 1 last evening * Lantus 13 units SQ X 1 this morning * Lantus per scale this evening (0,7,or 13 units based on BSG-see MAR for details) * Bolus insulin * NovoLog per scale ACHS or Q6hrs while NPO * Goal Range: Low 110 mg/dL - High 140 mg/dL * Correction Factor: 30 mg/dL/unit * Nutritional / Prandial insulin per carb ratio of 1 unit per 10 grams CHO consumed
[2020-04-30] MEDS ORDERED: NITROGLYCERIN SL 0.4 MG/TAB TAB SL PRN (15:17)
[2020-04-30] MEDS ORDERED: ALBUTEROL HFA 8 GM INHALER INH PRN (15:17)
[2020-04-30] MEDS ORDERED: FLUTICASONE PROPIONATE NA SPR 16 GM BTL PRN (15:30)
[2020-04-30] MEDS ORDERED: metFORMIN HCL 500 MG TAB PO SCH (17:00)
[2020-04-30] MEDS: METOPROLOL TARTRATE 50 MG TAB PO SCH ×2 (17:34→23:00)
[2020-04-30] MEDS: oxyCODONE/ACETAMINOPHEN 5mg/325mg TAB PO PRN ×2 (17:54→22:17)
[2020-04-30] MEDS: PRAVASTATIN SOD 40 MG TAB PO SCH (20:13)
[2020-04-30] MEDS: ASPIRIN 81 MG ECTAB PO SCH (20:13)
[2020-04-30] MEDS: ALFUZOSIN HCL 10 MG TAB PO SCH (20:13)
[2020-04-30] MEDS: cilostazoL 100 MG TAB PO SCH (20:13)
[2020-04-30] MEDS ORDERED: GLIMEPIRIDE 2 MG TAB PO SCH (21:00)
[2020-04-30] MEDS: INSULIN GLARGINE SOLOSTAR 100 UNITS/ML 3 ML PEN SC SCH (21:09)
[2020-04-30] MEDS ORDERED: FUROSEMIDE 20 MG in SYRINGE 0 ML IV ONE (22:50)
[2020-05-01] MEDS: oxyCODONE/ACETAMINOPHEN 5mg/325mg TAB PO PRN ×3 (03:47→15:12)
[2020-05-01] MEDS: INSULIN ASPART 100 UNITS/ML 3 ML PEN SC SCH ×4 (08:37→21:31)
[2020-05-01] MEDS: INSULIN GLARGINE SOLOSTAR 100 UNITS/ML 3 ML PEN SC SCH (08:37)
[2020-05-01] MEDS: METOPROLOL TARTRATE 50 MG TAB PO SCH ×2 (08:37→21:24)
[2020-05-01] MEDS: EZETIMIBE 10 MG TABLET PO SCH (08:39)
[2020-05-01] MEDS: FAMOTIDINE 40 MG TABLET PO SCH (08:39)
[2020-05-01] MEDS: lisinopril 2.5 MG TAB PO SCH (08:39)
[2020-05-01] MEDS: cilostazoL 100 MG TAB PO SCH ×2 (08:40→21:30)
[2020-05-01] MEDS: MoRPHine SULFATE 4 MG/ML 1 ML CARP\\VIAL IV PRN ×2 (08:46→21:18)
--- NOTE | 2020-05-01 11:40 | Pharmacy Report ---
Pharmacy Glycemic Short Note 2 - Date of Service May 01, 2020 - Glycemic Short BSG Results (Last 24 hours): 04/30/20 04/30/20 04/30/20 11:42 17:04 20:19 POC Glucose 127 H 108 H 105 H 05/01/20 07:57 POC Glucose 188 H OUTPATIENT ANTIDIABETIC REGIMEN: * Metformin 500mg BID * Glimepiride 4mg qam, 2mg qpm * A1c: 7.3% 04-01-20 ASSESSMENT: 05/01/20 * BSGs yesterday of 162, 127, 108, and 105 mg/dL * Patient received 13 units of basal insulin with no prandial/correctional insulin * Diet advanced from clear liquid to T2DM, but no carbs consumed this morning * Fasting BSG of 188 mg/dL this morning is elevated - will plan to increase basal insulin today * Lunch BSG of 236 mg/dL - will tighten Novolog parameters and order additional dose of Lantus now 04/30 * Patient presenting with moderate hyperglycemia which downtrended nicely today after 23 total units of insulin last evening * the patient was started on a moderate stress weight based basal/bolus regimen this morning. * The patient is ordered a diet, however per RN is not feeling up to eating and as such has not required any carb coverage with novolog. I will adjust evening lantus dose to a conservative scale given patient's poor appetite. PLAN FOR INPATIENT GLYCEMIC CONTROL: * Hold outpatient oral diabetes medications * Basal insulin - increase * Lantus 7 units given this morning per ordered scale * Lunch BSG of 236 mg/dL - will give additional 10 units of Lantus with lunch * scale (0-7 units) SC this evening - see EHR for details * Bolus insulin - tighten * NovoLog per scale ACHS or Q6hrs while NPO * Goal Range: Low 110 mg/dL - High 140 mg/dL * Correction Factor: 25 mg/dL/unit * Nutritional / Prandial insulin per carb ratio of 1 unit per 8 grams CHO consumed
[2020-05-01] MEDS ORDERED: INSULIN GLARGINE SOLOSTAR 100 UNITS/ML 3 ML PEN SC ONE (12:30)
--- NOTE | 2020-05-01 14:54 | Surgery Progress Note ---
Date of Service May 01, 2020 Assessment & Plan (1) S/P vascular surgery: Patient is postoperative day #2. He is doing well. He was ambulating slightly in the room. We will continue his physical therapy at this point. Admission and Anticipated Discharge Date Admission Date: April 29, 2020 Subjective Patient complaining of moderate incisional pain. He claims his right foot feels good and is warm. He is tolerating his diet. He has no complaints of shortness of breath. Physical Exam Constitutional: well developed Respiratory: normal respiratory effort, lungs clear to auscultation normal respiratory effort; no respiratory distress Cardiovascular: He has palpable dorsalis pedis and posterior tibial pulse in the right foot. Skin: + incision (Dressings are dry and clean.) Results & Data ([facility]) Vital Signs (Past 12 Hours) Vital Signs Temp Pulse Resp BP Pulse Ox 05/01/20 14:24 37.6 C H 83 18 154/68 H 93 05/01/20 07:04 36.8 C 85 18 167/79 H 94 05/01/20 02:59 36.7 C 73 18 157/83 H 95
[2020-05-01] MEDS ORDERED: INSULIN GLARGINE SOLOSTAR 100 UNITS/ML 3 ML PEN SC SCH (21:00)
[2020-05-01] MEDS: ALFUZOSIN HCL 10 MG TAB PO SCH (21:27)
[2020-05-01] MEDS: ASPIRIN 81 MG ECTAB PO SCH (21:27)
[2020-05-01] MEDS: PRAVASTATIN SOD 40 MG TAB PO SCH (21:28)
[2020-05-02] MEDS: oxyCODONE/ACETAMINOPHEN 5mg/325mg TAB PO PRN (02:30)
[2020-05-02] MEDS: METOPROLOL TARTRATE 50 MG TAB PO SCH ×2 (08:23→20:15)
[2020-05-02] MEDS: FAMOTIDINE 40 MG TABLET PO SCH (08:24)
[2020-05-02] MEDS: EZETIMIBE 10 MG TABLET PO SCH (08:24)
[2020-05-02] MEDS: lisinopril 2.5 MG TAB PO SCH (08:24)
[2020-05-02] MEDS: cilostazoL 100 MG TAB PO SCH ×2 (08:25→20:15)
[2020-05-02] MEDS: INSULIN ASPART 100 UNITS/ML 3 ML PEN SC SCH ×4 (08:47→20:24)
[2020-05-02] MEDS: INSULIN GLARGINE SOLOSTAR 100 UNITS/ML 3 ML PEN SC SCH ×2 (08:50→20:28)
--- NOTE | 2020-05-02 09:15 | Pharmacy Report ---
Pharmacy Glycemic Short Note 2 - Date of Service May 02, 2020 - Glycemic Short BSG Results (Last 24 hours): 05/01/20 05/01/20 05/01/20 12:01 17:10 21:10 POC Glucose 236 H 153 H 140 H 05/02/20 08:07 POC Glucose 159 H OUTPATIENT ANTIDIABETIC REGIMEN: * Metformin 500mg BID * Glimepiride 4mg qam, 2mg qpm * A1c: 7.3% 04-01-20 ASSESSMENT: 05/02/20 * BSGs yesterday of 188, 236, 153, 140 mg/dL * Novolog parameters tightened yesterday at lunchtime - will further tighten carb coverage * Patient received 17 units of basal insulin and 10 units of prandial/correctional insulin * Fasting BSG of 159 mg/dL this morning is elevated - will plan to schedule 10 units SC BID (weight-based in between a stress of 1 and 2 dosing) * POD #3 right ilio-femoral bypass 04/30 * Patient presenting with moderate hyperglycemia which downtrended nicely today after 23 total units of insulin last evening * the patient was started on a moderate stress weight based basal/bolus regimen this morning. * The patient is ordered a diet, however per RN is not feeling up to eating and as such has not required any carb coverage with Novolog. I will adjust evening lantus dose to a conservative scale given patient's poor appetite. PLAN FOR INPATIENT GLYCEMIC CONTROL: * Hold outpatient oral diabetes medications * Basal insulin - increase * Lantus 10 units SC BID * Bolus insulin - tighten * NovoLog per scale ACHS or Q6hrs while NPO * Goal Range: Low 110 mg/dL - High 140 mg/dL * Correction Factor: 25 mg/dL/unit * Nutritional / Prandial insulin per carb ratio of 1 unit per 7 grams CHO consumed PLAN FOR DISCHARGE: * Goal HbA1c for most patients would be less than 7% * HbA1c is slightly above goal at 7.3% * Renal function is intact, reasonable to titrate up on metformin as tolerated by patient to maximum dose of 1 g PO BIDM * Dosage increases should be made in increments of 500 mg weekly, up to 2,000 mg/day PO, given in divided doses.
--- NOTE | 2020-05-02 09:41 | Surgery Progress Note ---
Date of Service May 02, 2020 Assessment & Plan (1) S/P vascular surgery: Patient is postoperative day #3. He is doing well overall but still having considerable incisional pain and fatigue controlled with narcotics. VSS. Discussed with pt that he will need to increase his activity or will require short term rehab at discharge. Encouraged him to ambulate in hallway once per shift. Will order colace and miralax to start today. Pt agreeable to increase activity. Continue PT. Admission and Anticipated Discharge Date Admission Date: April 29, 2020 Subjective 65 yo m POD # 3 after RLE ilio-femoral prosthetic BPG, seen in f/u today. Pt admits pain in R side incisions and fatigue. States has not had BM and has not noted flatulence. Has ambulated to BR and back a few times. Denies HELLER, SOB, chest pain, abd pain or bloating, N/V, RLE leg or foot pain, other complaints. Review of Systems Review of Systems: All systems reviewed & are unremarkable except as noted in HPI & below Physical Exam Constitutional: well developed and well nourished Respiratory: normal respiratory effort, lungs clear to auscultation normal respiratory effort; no respiratory distress Cardiovascular: Rate/Rhythm: regular rate and regular rhythm Vessels: posterior tibial pulses present (+2RLE) and dorsalis pedis pulses present (+2 RLE) Extremities: normal capillary refill; no edema Gastrointestinal (Abdomen): normal bowel sounds, soft, nontender, no hepatosplenomegaly Inspection/Auscultation: normal bowel sounds Percussion/Palpation: abdomen soft; abdomen nontender Skin: + incision (Dressings are dry and clean.) Neurologic: normal touch/pain/proprioception and moves all extremities Psychiatric: Orientation: alert and oriented x 3 Results & Data ([facility]) Vital Signs (Past 12 Hours) Vital Signs Temp Pulse Pulse Resp BP Pulse Ox Pulse Ox 05/02/20 08:00 92 05/02/20 07:53 92 05/02/20 07:34 36.8 C 87 20 163/76 H 93 05/02/20 03:24 84 20 93 05/01/20 22:40 37.6 C H 80 18 154/68 H 91 05/01/20 22:19 90 18 92
[2020-05-02] MEDS: DOCUSATE SODIUM 100 MG CAP PO SCH ×2 (11:08→20:15)
[2020-05-02] MEDS: POLYETHYLENE (MIRALAX) 17 GM PACK PO SCH (11:08)
[2020-05-02] MEDS: PRAVASTATIN SOD 40 MG TAB PO SCH (20:15)
[2020-05-02] MEDS: ALFUZOSIN HCL 10 MG TAB PO SCH (20:15)
[2020-05-02] MEDS: ASPIRIN 81 MG ECTAB PO SCH (20:16)
[2020-05-03] MEDS: POLYETHYLENE (MIRALAX) 17 GM PACK PO SCH (08:42)
[2020-05-03] MEDS: EZETIMIBE 10 MG TABLET PO SCH (08:42)
[2020-05-03] MEDS: lisinopril 2.5 MG TAB PO SCH (08:43)
[2020-05-03] MEDS: cilostazoL 100 MG TAB PO SCH (08:43)
[2020-05-03] MEDS: FAMOTIDINE 40 MG TABLET PO SCH (08:44)
[2020-05-03] MEDS: METOPROLOL TARTRATE 50 MG TAB PO SCH (08:44)
[2020-05-03] MEDS: DOCUSATE SODIUM 100 MG CAP PO SCH (08:44)
[2020-05-03] MEDS: INSULIN ASPART 100 UNITS/ML 3 ML PEN SC SCH (08:47)
[2020-05-03] MEDS: INSULIN GLARGINE SOLOSTAR 100 UNITS/ML 3 ML PEN SC SCH (08:48)
[2020-05-03] MEDS ORDERED: ENOXAPARIN INJ 40 MG/0.4 ML SYR SQ SCH (09:15)
--- NOTE | 2020-05-03 09:34 | Surgery Progress Note ---
Date of Service May 03, 2020 Assessment & Plan (1) S/P vascular surgery: Doing well D/C today Admission and Anticipated Discharge Date Admission Date: April 29, 2020 Subjective Patient tolerating diet. Walked twice in [place] today. Bowels working. Foot without numbness or pain. Tolerating pain with oral meds. Physical Exam Constitutional: WD/WN, vitals as above Cardiovascular: Palpable pedal pulses Gastrointestinal (Abdomen): Inspection/Auscultation: abdomen normal to inspection Percussion/Palpation: abdomen soft Skin: + incision (dry and clean) Results & Data ([facility]) Vital Signs (Past 12 Hours) Vital Signs Temp Pulse Pulse Resp BP Pulse Ox Pulse Ox 05/03/20 07:15 37.1 C 86 16 150/75 H 94 05/02/20 23:59 93 05/02/20 23:07 37.5 C 79 17 128/51 L 90
--- NOTE | 2020-05-05 10:13 | Discharge Summary ---
Date of Service May 05, 2020 Admission HPI Per Admitting Provider Mr Sahu is a 64-year-old gentleman who had a cross femoral bypass done in the past. He had insertion of an iliac stent in his left iliac system. This was done in 2018. Approximately in November of last year he ended up with severe acute onset pain in the right leg which felt like a large cramp. He claims a work-up done at that time showed no blockage in the right lower extremity arterial system and no change in the aortoiliac system. He still gets claudication of his lower extremities when walking 2 blocks. He claims that his neighbor had to pick him up because he cannot get back the other day. He denies any rest pain in the foot. Admission Exam Per Admitting Provider Constitutional: well developed and well nourished Respiratory: normal respiratory effort, lungs clear to auscultation Cardiovascular: Rate/Rhythm: regular rate and regular rhythm Radials carotids and superficial temporal's are +2 bilaterally. Abdominal exam shows no abnormal dilatation of the aorta. His femorals are +2 on the left +1 on the right. His dorsalis pedis and posterior tib are +2 on the left. Posterior tibials +1 on the right I cannot feel dorsalis pedis. Neurologic exam is intact. Capillary refill may be slightly decreased on the left leg compared to the right. Assessment/Plan Gastrointestinal (Abdomen): normal bowel sounds, soft, nontender, no hepatosplenomegaly Neurologic: normal touch/pain/proprioception, CN's II-XI intact bilaterally and moves all extremities Psychiatric: Orientation: alert and oriented x 3 Principal Diagnosis 1. s/p R sided ilio-femoral prosthetic bypass graft 2. 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 Discharge Exam Constitutional well developed and well nourished Respiratory normal respiratory effort, lungs clear to auscultation normal respiratory effort; no respiratory distress Cardiovascular Rate/Rhythm: regular rate and regular rhythm Vessels: posterior tibial pulses present (+2RLE) and dorsalis pedis pulses present (+2 RLE) Extremities: normal capillary refill; no edema Gastrointestinal (Abdomen) normal bowel sounds, soft, nontender, no hepatosplenomegaly Inspection/Auscultation: normal bowel sounds Percussion/Palpation: abdomen soft; abdomen nontender Skin + incision (Dressings are dry and clean.) Neurologic normal touch/pain/proprioception and moves all extremities Psychiatric Orientation: alert and oriented x 3 Discharge Data Allergies Allergy/AdvReac Type Severity Reaction Status Date / Time gabapentin Allergy Unknown "throat Verified 04/29/20 08:45 swelled shhut" Iodinated Contrast Media Allergy Unknown hives Verified 04/29/20 08:45 Consultations 04/29/20 16:08 Consult Environmental Services Floor Tech Routine Procedures Performed Operation Date: 04/29/20 09:50 Actual Procedures p Right Ilio Femoral Bypass(Right) - Agapito Chan MD Hospital Course (1) S/P vascular surgery: POD # 4. Doing well with ambulation and pain control. D/C home today Total Time Total Time Spent Total Time Spent (In Minutes): 0 Discharge Plan Discharge Items Patient Disposition: Home - Self-Care Reason For Visit: Right Iliac Occlusion Discharge Diagnosis: Right iliac artery and femoral femoral artery bypass occlusion Lifting: No more than 25 pounds Bathing Comment: May shower Non-emergency contact: Surgeon Call non-emergency contact if: your temperature is above 101.5, your wound has increased redness, your wound has increased drainage and your wound pain has increased Follow-up/Referrals: Serafin Lynn DO [Primary Care Provider] - Diet: Carb Consistent or DM2 and Heart Healthy Addtl Attending Provider Instructions: ACTIVITY RECOMMENDATIONS: See Above SPECIAL CARE INSTRUCTIONS: Call your doctor if: * Temperature above 101 degrees * Pain not relieved by pain medicine ordered * There is increased drainage or redness from any incision * You have any unanswered questions or concerns. Call [phone] to schedule a follow up appointment if one not already scheduled. Pending Studies at Discharge: No Stand-Alone Forms: [facility] [place], Smoking Cessation Medications and DC Order Prescriptions: New oxycodone-acetaminophen [Percocet] 5-325 mg tablet 1 tab PO Q6H PRN (Reason: pain) Qty: 60 RF: 0 Continued metoprolol tartrate 50 mg tablet 50 mg PO BID Qty: 180 RF: 3 albuterol sulfate 90 mcg/actuation HFA aerosol inhaler 2 puffs inhalation Q4H PRN (Reason: shortness of breath or wheezing) Qty: 18 RF: 3 cilostazol 50 mg tablet 50 mg PO BID Qty: 180 RF: 3 metformin 500 mg tablet 500 mg PO BID Qty: 180 RF: 3 ezetimibe [Zetia] 10 mg tablet 10 mg PO DAILY Qty: 30 RF: 2 hydrocodone-acetaminophen 10-325 mg tablet 1 tab PO Q6H PRN (Reason: pain) Qty: 120 RF: 0 glimepiride 2 mg tablet See Rx Instructions PO BID RF: 0 ascorbic acid (vitamin C) 1,000 mg tablet 1 g PO QAM RF: 0 cholecalciferol (vitamin D3) 25 mcg (1,000 unit) capsule 25 mcg PO QAM RF: 0 nitroglycerin 0.4 mg tablet, sublingual 0.4 mg SL Q5M PRN (Reason: chest pain) Qty: 20 RF: 3 famotidine 40 mg tablet 40 mg PO QAM RF: 0 aspirin 81 mg tablet,delayed release (DR/EC) 81 mg PO QPM RF: 0 pravastatin 80 mg tablet 80 mg PO QPM RF: 0 fluticasone propionate 50 mcg/actuation spray,suspension 2 sprays intranasal DAILY PRN (Reason: Congestion) RF: 0 lisinopril 2.5 mg tablet 2.5 mg PO QAM RF: 0 alfuzosin 10 mg tablet extended release 24 hr 10 mg PO QPM RF: 0 Discharge Orders: Discharge Order (Routine); Ordered 05/03/20 Ordered By: Agapito Meza/Other Patient Handouts: Pain Management After Surgery, Peripheral Artery Bypass Surg Post Op Admission Data Admit Date/Time: 04/29/20 16:08 Attending Provider: Agapito Chan Admit Provider: Agapito Chan Primary Care Provider: Serafin Lynn Other Providers: Kodak Cavazos ; Jabier Barragan ; Mich Deal ; Obinna Garza ; Tate Willis ; Yoni Wooten ; Alejandro Matthews Other Interventions: Discharge Summary Assessment (RN) Last Done: 05/03/20 09:51
== END 2020-05-03 11:03 | disposition home or self-care (01) | DRG 271 ==
LOC: ASU 08:05 → 1E 16:08 → 3W 04-30 15:07